=== PATIENT | female | born 1955 | race Two or more races ===

== ENCOUNTER 2016-03-15 16:34 | Outpatient (CLI) ==
[2016-02-15 15:57] VITALS: BMI 28.7
[2016-03-15 16:59] LABS: ANION GAP 16.2; BUN/CREATININE RATIO 18.44; CREATININE 1.03 mg/dL (0.60-1.30); POTASSIUM 4.2 mmol/L (3.5-5.10)
== END 2016-03-15 16:35 | disposition home or self-care (01) ==
LOC: LAB 16:34 → NONPT 16:35
PROVIDERS: ATTEND Specialist
DX: E11.9 Type 2 diabetes mellitus without complications (principal); I48.91 Unspecified atrial fibrillation; K58.9 Irritable bowel syndrome, unspecified; Z93.2 Ileostomy status
CPT/HCPCS: 80048

== ENCOUNTER 2016-03-22 14:27 | Outpatient (CLI) ==
[2016-02-15 15:57] VITALS: BMI 28.7
[2016-03-22 14:53] LABS: ANION GAP 17.8; BUN/CREATININE RATIO 13.68; CALCIUM 9.8 mg/dL (8.2-10.2); CREATININE 0.95 mg/dL (0.60-1.30); POTASSIUM 3.8 mmol/L (3.5-5.10)
== END 2016-03-22 14:28 | disposition home or self-care (01) ==
LOC: LAB 14:27 → NONPT 14:28
PROVIDERS: ATTEND Specialist
DX: I10 Essential (primary) hypertension (principal); E11.9 Type 2 diabetes mellitus without complications
CPT/HCPCS: 80048

== ENCOUNTER 2016-03-29 11:32 | Outpatient (CLI) ==
[2016-02-15 15:57] VITALS: BMI 28.7
[2016-03-29 11:53] LABS: ANION GAP 14.1; BUN/CREATININE RATIO 18.08; CALCIUM 9.5 mg/dL (8.2-10.2); CREATININE 0.94 mg/dL (0.60-1.30); POTASSIUM 4.1 mmol/L (3.5-5.10)
== END 2016-03-29 11:33 | disposition home or self-care (01) ==
LOC: NONPT 11:32
PROVIDERS: ATTEND Internal Medicine
DX: Z43.2 Encounter for attention to ileostomy (principal); I10 Essential (primary) hypertension
CPT/HCPCS: 80048

== ENCOUNTER 2016-04-05 13:05 | Outpatient (CLI) ==
[2016-02-15 15:57] VITALS: BMI 28.7
[2016-04-05 13:40] LABS: ANION GAP 13.2; BUN/CREATININE RATIO 16.45; CREATININE 0.79 mg/dL (0.60-1.30); POTASSIUM 4.2 mmol/L (3.5-5.10)
== END 2016-04-05 13:06 | disposition home or self-care (01) ==
LOC: LAB 13:05
PROVIDERS: ATTEND Internal Medicine
DX: E11.9 Type 2 diabetes mellitus without complications (principal); T81.31XA Disruption of external operation (surgical) wound, not elsewhere classified, initial encounter; Z93.4 Other artificial openings of gastrointestinal tract status
CPT/HCPCS: 36415; 80048

== ENCOUNTER 2016-04-12 12:10 | Outpatient (CLI) ==
[2016-02-15 15:57] VITALS: BMI 28.7
[2016-04-12 12:44] LABS: ANION GAP 15.3; BUN/CREATININE RATIO 21.73; CALCIUM 8.9 mg/dL (8.2-10.2); CREATININE 0.69 mg/dL (0.60-1.30); POTASSIUM 4.3 mmol/L (3.5-5.10)
== END 2016-04-12 12:11 | disposition home or self-care (01) ==
LOC: LAB 12:10 → NONPT 12:11
PROVIDERS: ATTEND Internal Medicine
DX: I10 Essential (primary) hypertension (principal); T81.31XA Disruption of external operation (surgical) wound, not elsewhere classified, initial encounter
CPT/HCPCS: 36415; 80048

== ENCOUNTER 2016-04-19 12:37 | Outpatient (CLI) ==
[2016-02-15 15:57] VITALS: BMI 28.7
[2016-04-19 13:03] LABS: ANION GAP 14.4; BUN/CREATININE RATIO 15.06; CALCIUM 9.1 mg/dL (8.2-10.2); CREATININE 0.73 mg/dL (0.60-1.30); POTASSIUM 4.4 mmol/L (3.5-5.10)
== END 2016-04-19 12:38 | disposition home or self-care (01) ==
LOC: NONPT 12:37
PROVIDERS: ATTEND Internal Medicine
DX: T81.31XA Disruption of external operation (surgical) wound, not elsewhere classified, initial encounter (principal); I10 Essential (primary) hypertension
CPT/HCPCS: 80048

== ENCOUNTER 2016-05-03 10:47 | Outpatient (CLI) ==
[2016-02-15 15:57] VITALS: BMI 28.7
[2016-05-03 11:14] LABS: ANION GAP 15.1; BUN/CREATININE RATIO 23.4; CALCIUM 8.6 mg/dL (8.2-10.2); CREATININE 0.94 mg/dL (0.60-1.30); POTASSIUM 4.1 mmol/L (3.5-5.10)
== END 2016-05-03 10:48 | disposition home or self-care (01) ==
LOC: NONPT 10:47
PROVIDERS: ATTEND Internal Medicine
DX: I10 Essential (primary) hypertension (principal)
CPT/HCPCS: 80048

== ENCOUNTER 2016-05-10 11:27 | Outpatient (CLI) ==
[2016-02-15 15:57] VITALS: BMI 28.7
[2016-05-10 11:54] LABS: ANION GAP 16.5; BUN/CREATININE RATIO 21.91; CALCIUM 9.4 mg/dL (8.2-10.2); CREATININE 0.73 mg/dL (0.60-1.30); POTASSIUM 4.5 mmol/L (3.5-5.10)
== END 2016-05-10 11:28 | disposition home or self-care (01) ==
LOC: NONPT 11:27
PROVIDERS: ATTEND Internal Medicine
DX: I10 Essential (primary) hypertension (principal); T81.31XA Disruption of external operation (surgical) wound, not elsewhere classified, initial encounter
CPT/HCPCS: 80048

== ENCOUNTER 2016-05-17 11:38 | Outpatient (CLI) ==
[2016-02-15 15:57] VITALS: BMI 28.7
[2016-05-17 12:08] LABS: ANION GAP 16.1; BUN/CREATININE RATIO 20.31; CALCIUM 8.8 mg/dL (8.2-10.2); CREATININE 0.64 mg/dL (0.60-1.30); POTASSIUM 4.1 mmol/L (3.5-5.10)
== END 2016-05-17 11:39 | disposition home or self-care (01) ==
LOC: NONPT 11:38
PROVIDERS: ATTEND Internal Medicine
DX: T81.31XA Disruption of external operation (surgical) wound, not elsewhere classified, initial encounter (principal); I10 Essential (primary) hypertension
CPT/HCPCS: 80048

== ENCOUNTER 2016-05-24 11:34 | Outpatient (CLI) ==
[2016-02-15 15:57] VITALS: BMI 28.7
[2016-05-24 11:57] LABS: ANION GAP 12.8; BUN/CREATININE RATIO 17.07; CALCIUM 9.4 mg/dL (8.2-10.2); CREATININE 0.82 mg/dL (0.60-1.30); POTASSIUM 3.8 mmol/L (3.5-5.10)
== END 2016-05-24 11:35 | disposition home or self-care (01) ==
LOC: NONPT 11:34
PROVIDERS: ATTEND Internal Medicine
DX: I10 Essential (primary) hypertension (principal); T81.31XA Disruption of external operation (surgical) wound, not elsewhere classified, initial encounter
CPT/HCPCS: 80048

== ENCOUNTER 2016-05-31 11:32 | Outpatient (CLI) ==
[2016-02-15 15:57] VITALS: BMI 28.7
[2016-05-31 12:09] LABS: ANION GAP 14.2; BUN/CREATININE RATIO 21.92; CALCIUM 9.7 mg/dL (8.2-10.2); CREATININE 1.14 mg/dL (0.60-1.30); POTASSIUM 4.2 mmol/L (3.5-5.10)
== END 2016-05-31 11:33 | disposition home or self-care (01) ==
LOC: NONPT 11:32
PROVIDERS: ATTEND Internal Medicine
DX: I10 Essential (primary) hypertension (principal)
CPT/HCPCS: 80048

== ENCOUNTER 2016-06-07 11:22 | Outpatient (CLI) ==
[2016-02-15 15:57] VITALS: BMI 28.7
[2016-06-07 11:50] LABS: ANION GAP 16.2; BUN/CREATININE RATIO 17.46; CALCIUM 10.4 mg/dL (8.2-10.2); CREATININE 1.26 mg/dL (0.60-1.30); POTASSIUM 4.2 mmol/L (3.5-5.10)
== END 2016-06-07 11:23 | disposition home or self-care (01) ==
LOC: NONPT 11:22
PROVIDERS: ATTEND Internal Medicine
DX: T81.31XA Disruption of external operation (surgical) wound, not elsewhere classified, initial encounter (principal); I10 Essential (primary) hypertension
CPT/HCPCS: 80048

== ENCOUNTER 2016-06-21 10:30 | Outpatient (CLI) ==
[2016-02-15 15:57] VITALS: BMI 28.7
[2016-06-21 10:53] LABS: ANION GAP 15.2; BUN/CREATININE RATIO 14.16; CALCIUM 9.2 mg/dL (8.2-10.2); CREATININE 1.2 mg/dL (0.60-1.30); POTASSIUM 4.2 mmol/L (3.5-5.10)
== END 2016-06-21 10:31 | disposition home or self-care (01) ==
LOC: NONPT 10:30
PROVIDERS: ATTEND Internal Medicine
DX: T81.31XA Disruption of external operation (surgical) wound, not elsewhere classified, initial encounter (principal); I10 Essential (primary) hypertension
CPT/HCPCS: 80048

== ENCOUNTER 2016-06-28 11:11 | Outpatient (CLI) ==
[2016-02-15 15:57] VITALS: BMI 28.7
[2016-06-28 11:33] LABS: ANION GAP 12.9; BUN/CREATININE RATIO 18.8; CALCIUM 9.2 mg/dL (8.2-10.2); CREATININE 1.17 mg/dL (0.60-1.30); POTASSIUM 3.9 mmol/L (3.5-5.10)
== END 2016-06-28 11:12 | disposition home or self-care (01) ==
LOC: NONPT 11:11
PROVIDERS: ATTEND Internal Medicine
DX: I10 Essential (primary) hypertension (principal); I48.0 Paroxysmal atrial fibrillation
CPT/HCPCS: 80048

== ENCOUNTER 2016-07-05 13:00 | Outpatient (CLI) ==
[2016-02-15 15:57] VITALS: BMI 28.7
[2016-07-05 13:30] LABS: ANION GAP 13.4; BUN/CREATININE RATIO 20.22; CALCIUM 9.3 mg/dL (8.2-10.2); CREATININE 0.89 mg/dL (0.60-1.30); POTASSIUM 4.4 mmol/L (3.5-5.10)
== END 2016-07-05 13:01 | disposition home or self-care (01) ==
LOC: NONPT 13:00
PROVIDERS: ATTEND Internal Medicine
DX: I10 Essential (primary) hypertension (principal); Z43.2 Encounter for attention to ileostomy
CPT/HCPCS: 80048

== ENCOUNTER 2016-07-12 11:40 | Outpatient (CLI) ==
[2016-02-15 15:57] VITALS: BMI 28.7
[2016-07-12 12:08] LABS: ANION GAP 13.1; BUN/CREATININE RATIO 17.97; CALCIUM 9.5 mg/dL (8.2-10.2); CREATININE 0.89 mg/dL (0.60-1.30); POTASSIUM 4.1 mmol/L (3.5-5.10)
== END 2016-07-12 11:41 | disposition home or self-care (01) ==
LOC: NONPT 11:40
PROVIDERS: ATTEND Internal Medicine
DX: Z43.2 Encounter for attention to ileostomy (principal); I10 Essential (primary) hypertension; I48.91 Unspecified atrial fibrillation
CPT/HCPCS: 80048

== ENCOUNTER 2016-07-20 13:06 | Outpatient (CLI) ==
[2016-02-15 15:57] VITALS: BMI 28.7
[2016-07-20 13:48] LABS: BUN/CREATININE RATIO 16.85; CALCIUM 8.9 mg/dL (8.2-10.2); CREATININE 0.89 mg/dL (0.60-1.30)
== END 2016-07-20 13:07 | disposition home or self-care (01) ==
LOC: NONPT 13:06
PROVIDERS: ATTEND Internal Medicine
DX: I10 Essential (primary) hypertension (principal); I48.91 Unspecified atrial fibrillation
CPT/HCPCS: 80048

== ENCOUNTER 2016-08-13 06:06 | Outpatient (CLI) ==
[2016-02-15 15:57] VITALS: BMI 28.7
[2016-08-13] MEDS ORDERED: ATROPINE SULFATE PFS ONE (07:22)
[2016-08-13] MEDS: DOBUTAMINE 250 ML IV ONE (07:59)
--- NOTE | 2016-08-13 10:18 | NM ---
EXAM: Myocardial perfusion imaging HISTORY: Hypertension and atrial fibrillation COMPARISON: Myocardial imaging on 06/19/2012 was normal. TECHNIQUE: Patient was injected 4 mCi of thallium 201 chloride intravenously while at rest. SPECT i maging of the heart was acquired. The patient was stressed using dobutamine protocol and injected 2 5.9 mCi of Tc99m Sestamibi intravenously. Another SPECT imaging of the heart was performed. Gated cardiac study was acquired. FINDINGS: Post stress images show normal left ventricular cavity size. A focal area of reduced perf usion is noted involving the inferior apical segment of the left ventricle. This shows reperfusion on delayed imaging. The left ventricular ejection fraction is 63%. Wall motion is normal. IMPRESSION: 1. SPECT myocardial imaging shows inferior apical reversible ischemia. 2. Normal left ventricular ejection fraction and normal wall motion
--- NOTE | 2016-08-13 10:32 | DOBSTECHST ---
Ordering Physician: TOMMY BARNETT Date of Test: 08/13/2016 Reason for Examination: ATRIAL FIBRILLATION, HYPERTENSION Current Medications: PRADAXA, FERROUS SULFATE, OMEPRAZOLE, IMODIUM, ELIQUIS, ZOFRAN, PHENERGAN, TRAMADOL Height: 63" Weight: 142 LBS Target Heart Rate: 133/157 ST Segment Stage Time HR BPM BP mmhg Rhythm +/- Up Down Comments/Symptoms Control Sitting 75 125/85 A FIB NONE Dobutamine 250mg/D5W 5cmg/KG/mn 10cmg/KG/mn 3" 98 130/80 A FIB NONE 15cmg/KG/mn 2" 129 130/82 A FIB NONE 20cmg/KG/mn 1:27 153 130/82 A FIB NONE 25cmg/KG/mn 30cmg/KG/mn 35cmg/KG/mn 40cmg/KG/mn Time: 3" HR B/P Time: 5" HR B/P Time: HR B/P Recovery 118 135/80 Recovery 97 Recovery Total Time: 6:27 Maximum Heart Rate Reached: 153 __ Interpretation: 100% OXYGEN SATURATION ON ROOM AIR WITH DOBUTAMINE INFUSION 1. NO EVIDENCE OF ISCHEMIC ST-T WAVE CHANGES (BASELINE ABNORMAL ST-T WAVE CHANGES) 2. NO CHEST PAIN OR CHEST DISCOMFORT 3. HYPOKINETIC LEFT VENTRICLE AT REST, MILDLY IMPROVED LEFT VENTRICULAR CONTRACTILITY WITH DOBUTAMINE INFUSION 4. SESTAMIBI TO FOLLOW MTDD
--- NOTE | 2016-08-13 10:47 | ECHOSTRESS ---
Date of Exam: 08/13/2016 Ordering Physician: TOMMY BARNETT Reason for Echo: ATRIAL FIBRILLATION, HYPERTENSION, DOBUTAMINE INFUSION-NO ISCHEMIA M-Mode Normal Adult Results LV Dimensions Normal Adult Results AoV Opening excursions >1.6 LVEDD-base- 3.5-5.8 Ao root dimensions 2.0-3.7 LVESD-base- 3.1-4.6 L. Atrium dimensions 1.9-3.8 Post. Wall thickness 0.8-1.1 IV septum (thickness) 0.7-1.2 Post. Wall excursion 0.72-1.3 Septal motion Systolic motion R. Ventricular cavity 1.5-2.0 LVEF 60% Paradoxical septal wall motion 2-D: HYPOKINETIC LEFT VENTRICLE AT REST. IMPROVED LEFT VENTRICULAR CONTRACTILITY WITH DOBUTAMINE INFUSION M-MODE: MV: AV: TV: PV: CHAMBER SIZE: WALL MOTION: HYPOKINETIC LEFT VENTRICLE AT REST. IMPROVED LEFT VENTRICULAR CONTRACTILITY WITH DOBUTAMINE INFUSION PERICARDIUM: INTERPRETATION: 1. HYPOKINETIC LEFT VENTRICLE AT REST. IMPROVED LEFT VENTRICULAR CONTRACTILITY WITH DOBUTAMINE INFUSION MTDD
== END 2016-08-13 06:07 | disposition home or self-care (01) ==
LOC: CAR 06:06
PROVIDERS: ATTEND Internal Medicine
DX: I48.91 Unspecified atrial fibrillation (principal); I10 Essential (primary) hypertension

== ENCOUNTER 2016-10-15 10:17 | Outpatient (CLI) ==
[2016-02-15 15:57] VITALS: BMI 28.7
[2016-10-15 10:49] LABS: BASOPHILS % (AUTO) 0.5 % (0.0-3.0); EOSINOPHILS % (AUTO) 0.8 % (0.0-7.0); HEMATOCRIT 27.4 % (37.0-47.0); HEMOGLOBIN 8.9 g/dl (12.0-16.0); IMMATURE GRANULOCYTE % (AUTO) 0.3 % (0.0-5.0); LYMPHOCYTES # (AUTO) 0.6 K/uL (0.60-3.4); LYMPHOCYTES % (AUTO) 15.2 (10.0-50.0); MEAN CORPUSCULAR HEMOGLOBIN 29.8 pg (27.0-31.0); MEAN CORPUSCULAR HGB CONC 32.5 (31.8-35.4); MEAN CORPUSCULAR VOLUME 91.6 fl (81.0-99.0); MONOCYTES # (AUTO) 0.4 K/uL (0.4-2.0); MONOCYTES % (AUTO) 9.8 (0-10); NEUTROPHILS # (AUTO) 2.7 K/ul (2.0-6.9); NEUTROPHILS % (AUTO) 73.4; PLATELET COUNT 315 10^3/uL (140-440); RED BLOOD COUNT 2.99 10^6/ul (4.20-5.40); WHITE BLOOD COUNT 3.68 K/ul (4.6-10.2)
[2016-10-15 12:11] LABS: ALBUMIN/GLOBULIN RATIO 0.94; ANION GAP 16.6; BILIRUBIN,TOTAL 0.9 mg/dL (0.00-1.20); BUN/CREATININE RATIO 12.72; CALCIUM 9.1 mg/dL (8.2-10.2); CREATININE 0.55 mg/dL (0.60-1.30); POTASSIUM 3.6 mmol/L (3.5-5.10); TOTAL PROTEIN 6.2 g/dL (5.8-8.1)
== END 2016-10-15 10:18 | disposition home or self-care (01) ==
LOC: NONPT 10:17
PROVIDERS: ATTEND Internal Medicine
DX: Z48.815 Encounter for surgical aftercare following surgery on the digestive system (principal); I48.91 Unspecified atrial fibrillation
CPT/HCPCS: 80053; 85025

== ENCOUNTER 2016-10-22 10:37 | Outpatient (CLI) ==
[2016-02-15 15:57] VITALS: BMI 28.7
[2016-10-22 10:54] LABS: BASOPHILS % (AUTO) 0.4 % (0.0-3.0); EOSINOPHILS # (AUTO) 0.1 K/ul (0.0-0.7); EOSINOPHILS % (AUTO) 1.3 % (0.0-7.0); HEMATOCRIT 32.6 % (37.0-47.0); HEMOGLOBIN 10.4 g/dl (12.0-16.0); IMMATURE GRANULOCYTE % (AUTO) 0.4 % (0.0-5.0); LYMPHOCYTES # (AUTO) 0.8 K/uL (0.60-3.4); LYMPHOCYTES % (AUTO) 14.2 (10.0-50.0); MEAN CORPUSCULAR HEMOGLOBIN 29.6 pg (27.0-31.0); MEAN CORPUSCULAR HGB CONC 31.9 (31.8-35.4); MEAN CORPUSCULAR VOLUME 92.9 fl (81.0-99.0); MONOCYTES # (AUTO) 0.4 K/uL (0.4-2.0); MONOCYTES % (AUTO) 7.5 (0-10); NEUTROPHILS # (AUTO) 4.1 K/ul (2.0-6.9); NEUTROPHILS % (AUTO) 76.2; PLATELET COUNT 246 10^3/uL (140-440); RED BLOOD COUNT 3.51 10^6/ul (4.20-5.40); WHITE BLOOD COUNT 5.35 K/ul (4.6-10.2)
== END 2016-10-22 10:38 | disposition home or self-care (01) ==
LOC: LAB 10:37
PROVIDERS: ATTEND Internal Medicine
DX: D72.819 Decreased white blood cell count, unspecified (principal); R71.8 Other abnormality of red blood cells
CPT/HCPCS: 36415; 85025

== ENCOUNTER 2017-11-01 13:23 | Outpatient (CLI) ==
[2016-02-15 15:57] VITALS: BMI 28.7
== END 2017-11-01 13:24 | disposition home or self-care (01) ==
LOC: DIETCN 13:23
PROVIDERS: ATTEND Internal Medicine
DX: E11.9 Type 2 diabetes mellitus without complications (principal); R19.7 Diarrhea, unspecified

== ENCOUNTER 2018-11-01 09:11 | Emergency (ER) | payer OTHER ==
[2018-11-01 09:15] VITALS: BP 120/74; TEMP 97.7; BMI 30.1
[2018-11-01] MEDS ORDERED: LIDOCAINE HCL 1% SDV IM STA (09:32)
[2018-11-01] MEDS ORDERED: ROCEPHIN 1 GM VIAL IM STA (09:32)
[2018-11-01] MEDS: LEVAQUIN PO STA (09:38)
--- NOTE | 2018-11-01 09:40 | ED.PDOC ---
General ED Provider: Dr. SEFERINO DICK Chief Complaint: Foot Pain/Injury Stated Complaint: PUNCTURE WOUND THROUGH HER SHOES LEFT FOOT 2 DAYS AGO Time Seen by Physician: 09:12 (SEE PHOTOS. SEE AT ALL TIMES WITH EDVIN RAND ) Mode of Arrival: Walk-In Information Source: Patient Primary Care Provider: TOMMY BARNETT Referred to ED by: Other (TETNUS STATUS UNCERTAIN BY THE PT) Nursing and Triage Documentation Reviewed and Agree: Yes Does patient meet sepsis criteria?: No System Inflammatory Response Syndrome: Not Applicable (SEE PHOTOS ) Sepsis Protocol: For patient's 13 years and over: Temp is 96.8 and below OR 101 and greater Pulse >90 BPM Resp >20/minute Acutely Altered Mental Status Are patient's symptoms suggestive of a new infection, such as: -Pneumonia -Skin, Soft Tissue -Endocarditis -UTI -Bone, Joint Infection -Implantable Device -Acute Abdominal Infection -Wound Infection -Meningitis -Blood Stream Catheter Infection -Unknown Review of Systems - Review Of Systems Constitutional: Reports: No symptoms Eyes: Reports: No symptoms Ears, Nose, Mouth, Throat: Reports: No symptoms Respiratory: Reports: No symptoms Cardiac: Reports: No symptoms GI: Reports: No symptoms : Reports: No symptoms Musculoskeletal: Reports: Other (PUNCTURE WOUND LEFT FOOT SOLE 1MM) Skin: Reports: No symptoms Neurological: Reports: No symptoms Endocrine: Reports: No symptoms Hematologic/Lymphatic: Reports: No symptoms All Other Systems: Reviewed and Negative Past Medical History - Past Medical History Previously Healthy: Yes Endocrine: Reports: DM 2 Cardiovascular: Reports: A-Fib, Other (TACHYCARDIA) Respiratory: Reports: None Hematological: Reports: Anemia Gastrointestinal: Reports: Other (AFIB , colostomy). Denies: GI Bleed (c-dff) Genitourinary: Reports: None Neuro/Psych: Reports: None Musculoskeletal: Reports: Arthritis, Back Pain Cancer: Reports: None Last Menstrual Period: N/A Other Pertinent Past Medical History: TACHYCARDIA, IBSDM ANEM AFIB ARTH - Surgical History General Surgical History: Reports: Hysterectomy (3 years ago--prolapse surgery november 2015- lost 70 pounds) - Family History Family History: Reports: Unknown - Social History Smoking Status: Never smoker Hx Substance Use: No Alcohol Screening: None - Immunizations Tetanus Shot up to Date: No Physical Exam - Physical Exam Appearance: Well-appearing, No pain distress, Well-nourished Eyes: ADRI, EOMI, Conjunctiva clear ENT: Ears normal, Nose normal, Oropharynx normal Respiratory: Airway patent, Breath sounds clear, Breath sounds equal, Respirations nonlabored Cardiovascular: RRR, Pulses normal, No rub, No murmur GI/: Soft, Nontender, No masses, Bowel sounds normal, No Organomegaly Musculoskeletal: Normal strength, ROM intact, No edema, No calf tenderness Skin: Warm, Dry (1MM PUNCTURE WOUND SOLE LEFT FOOT SEE PHOTOS) Neurological: Sensation intact, Motor intact, Reflexes intact, Cranial nerves intact, Alert, Oriented Psychiatric: Affect appropriate, Mood appropriate Interpretation - Radiology Interpretation Radiology Interpretation By: Radiologist Radiology Results: No acute changes Critical Care Note - Critical Care Note Total Time (mins): 0 Course - Course Orders, Labs, Meds: Orders Category Date Time Status Levofloxacin [Levaquin] MEDS 11/01/18 09:32 Discontinued 500 mg PO ONCE STA Tetanus and Diphtheria Tox/Pf [Tenivac] MEDS 11/01/18 09:47 Discontinued 0.5 ml IM .ONCE ONE FOOT, LEFT 3 VIEWS Stat RADS 11/01/18 09:33 Completed Medications Discontinued Medications Generic Name Dose Route Start Last Admin Trade Name Freq PRN Reason Stop Dose Admin Levofloxacin 500 mg 11/01/18 09:32 11/01/18 09:38 Levaquin PO 11/01/18 09:33 500 mg ONCE STA Administration Tetanus/Diphtheria Toxoids Adsorbed 0.5 ml 11/01/18 09:47 11/01/18 09:57 Tenivac IM 11/01/18 09:48 0.5 ml .ONCE ONE Administration Vital Signs: Temp Pulse Resp BP Pulse Ox 11/01/18 09:11 97.7 F 100 H 18 120/74 95 Departure - Departure Time of Disposition: 11:00 Disposition: HOME SELF-CARE Discharge Problem: Injury of foot Puncture wound of left foot Qualifiers: Encounter type: initial encounter Qualified Code(s): S91.332A - Puncture wound without foreign body, left foot, initial encounter Instructions: Puncture Wound (ED) Condition: Good Pt referred to PMD for follow-up: Yes IPMP verified?: No Additional Instructions: Please call your Family Physician as soon as possible to schedule a follow-up appointment. LEVAQUIN LIVES IN THE BONES AND TENDONS FOR A LONG TIME . THIS MEDICATION WITH SUDDEN BURST MOVEMENTS, LIKE RUNNING OR , JUMPING HAS BEEN REPORTED TO CAUSE TENDON INJURY. IN SOME REPORTS IT CAN BE A CAUSE OF TENDON RELATED INJURY UP TO WEEKS OR MONTHS. Prescriptions: Levofloxacin [Levaquin] 500 mg PO DAILY #4 tablet Allergies/Adverse Reactions: Allergies No Known Allergies Allergy (Verified 11/01/18 09:19) Home Medications: Ambulatory Orders Omeprazole [Prilosec] 20 mg PO QDAC 06/26/14 Apixaban [Eliquis] 5 mg PO BID 11/01/18 Dicyclomine HCl [Bentyl] 10 mg PO DAILY LAB 11/01/18 Diltiazem HCl [Cardizem] 30 mg PO Q12HR 11/01/18 Levofloxacin [Levaquin] 500 mg PO DAILY #4 tablet 11/01/18 Disposition Discussed With: Patient
[2018-11-01] MEDS: TENIVAC IM ONE (09:57)
--- NOTE | 2018-11-01 10:37 | DI ---
EXAM: LEFT FOOT, 3 VIEWS HISTORY: Puncture wound FINDINGS: Bones appear demineralized. There is diffuse osteoarthritis, mild to moderate in degree a nd greater at the first metatarsophalangeal joint than elsewhere. Soft tissues reveal no gas collect ion or radiopaque foreign body. IMPRESSION: 1. No fracture or soft tissue radiopaque foreign body.
== END 2018-11-01 10:41 | disposition home or self-care (01) ==
LOC: ED 09:11
DX: S91.332A Puncture wound without foreign body, left foot, initial encounter (principal); W26.9XXA Contact with unspecified sharp object(s), initial encounter
CPT/HCPCS: 90471; 90714; 99282